=== PATIENT | male | born 1995 | race Hispanic/Latino ===

== ENCOUNTER 2024-08-15 23:38 | Emergency (ER) | payer OTHER ==
[2024-08-16] MEDS ORDERED: Iopamidol-370 76% 500 ML MDV (1 ML CHARGE) ONE (09:23)
== END 2024-08-16 04:06 | disposition home or self-care (01) ==
LOC: ERS 23:38
DX: S16.1XXA Strain of muscle, fascia and tendon at neck level, initial encounter (principal); M54.50 Low back pain, unspecified; Z75.8 Other problems related to medical facilities and other health care; V49.3XXA Car occupant (driver) (passenger) injured in unspecified nontraffic accident, initial encounter; Y93.89 Activity, other specified
CPT/HCPCS: 71045; 71260; 72125; 74177; 93005; Q9967